=== PATIENT | male | born 1965 | race Caucasian/White ===

== ENCOUNTER → 2017-08-01 | Outpatient (CLI) | payer BC ==
[2017-08-02 14:10] LABS: TISSUE TRANSGLUTAMINASE IgA <2 U/mL (0-3)
== END ==
LOC: M LAB 09:28
DX: R19.7 Diarrhea, unspecified (principal)
CPT/HCPCS: 82784

== ENCOUNTER → 2017-08-11 | Outpatient (CLI) | payer BC ==
[~2017-08-11] MED LIST: GLUCAGON FOR INJ 1 MG VIAL (J1610) As Ordered; ISOVUE-370 76% 100ML VIAL (Q9967) As Ordered; VoLumen 0.1% SUSPENSION 450ML BOTTLE As Ordered
== END ==
LOC: M RAD 09:27
DX: R19.7 Diarrhea, unspecified (principal)

== ENCOUNTER 2017-09-01 07:35 | Day surgery (SDC) | payer BC ==
[2017-09-01] MEDS: NS 1,000 ML IV ×2 (07:45→08:39)
[2017-09-01] MEDS ORDERED: PROPOFOL 200 MG/20 ML VIAL As Ordered ×4 (08:37→10:00)
[2017-09-01] MEDS ORDERED: LIDOCAINE 2% INJ 100 MG/5 ML SDV (FOR ANES.) As Ordered (08:37)
[2017-09-01] MEDS ORDERED: LABETALOL HCL 100 MG/20 ML VIAL As Ordered (10:20)
== END 2017-09-01 10:41 | disposition home or self-care (01) ==
LOC: M OPP 07:35
DX: R19.7 Diarrhea, unspecified (principal); K50.90 Crohn's disease, unspecified, without complications; D12.5 Benign neoplasm of sigmoid colon; D12.2 Benign neoplasm of ascending colon; K57.30 Diverticulosis of large intestine without perforation or abscess without bleeding; K64.8 Other hemorrhoids; R12 Heartburn; K31.7 Polyp of stomach and duodenum; I10 Essential (primary) hypertension; K21.9 Gastro-esophageal reflux disease without esophagitis; R06.83 Snoring; Z79.899 Other long term (current) drug therapy
CPT/HCPCS: 45385

== ENCOUNTER → 2017-09-23 | Outpatient (CLI) | payer BC | LOC: M RAD 06:04 | DX: I10 Essential (primary) hypertension (principal) | CPT/HCPCS: 76775 ==